=== PATIENT | male | born 1935 | race Caucasian/White ===

== ENCOUNTER 2022-06-04 18:18 | Emergency (ER) | payer MEDICARE, OTHER ==
[~2022-06-04] VITALS: Ht 193 cm; Wt 113.4 kg
[2022-06-04 18:23] VITALS: BP 178/97
--- NOTE | 2022-06-04 19:00 | NUR ---
BIBA FROM [place] C/O LOW BACK PAIN ONSET 2 WKS. STATES FALL 1 WK AGO, + BRUISING TO THE BACK. DENIES HEAD TRAUMA OR INJURY. PT AMBULATORY WITH WALKER. VITALS STABLE. EDEMA NOTED B/L LEGS. DENIES SOB OR CP. AAOX4. ON [employer]. PMH:CHF, PROSTATE CANCER- "METS THROUGHOUT BONES", INGUINAL HERNIA, NEUROPATHY, HTN ALLERGIES: WARFARIN, NSAIDS, PCN
--- NOTE | 2022-06-04 19:08 | NUR ---
URINE COLLECTED. IV ESTABLISHED ON R AC 20G.
[2022-06-04] MEDS ORDERED: MORPHINE SULFATE 4 MG/ML SYR IVP ONE ×2 (19:25→21:50)
[2022-06-04 19:51] LABS: BASOPHILS % (AUTO) 0.6 % (0.0-2.0); EOSINOPHILS # (AUTO) 0.1 K/uL (0-0.4); EOSINOPHILS % (AUTO) 2.5 % (0.0-4.0); HEMATOCRIT 30.2 % (36-52); HEMOGLOBIN 9.7 g/dL (12.0-18.0); LYMPHOCYTES # (AUTO) 0.4 K/uL (2.0-11.5); MEAN CORPUSCULAR HEMOGLOBIN 29 pg (27-31); MEAN CORPUSCULAR HGB CONC 32 g/dL (33-37); MEAN CORPUSCULAR VOLUME 91.1 fL (80-94); MONOCYTES # (AUTO) 0.5 K/uL (0.8-1.0); NEUTROPHILS # (AUTO) 3.6 K/uL (1.8-7.7); NEUTROPHILS % (AUTO) 76.9 % (42.2-75.2); PLATELET COUNT (AUTO) 209 K/uL (140-450); RED BLOOD CELL COUNT(AUTO) 3.32 MIL/uL (4.20-6.10); RED CELL DISTRIBUTION WIDTH 19.3 % (11.6-13.7); WHITE BLOOD COUNT (AUTO) 4.7 K/uL (4.8-10.8)
[2022-06-04 20:14] LABS: ALBUMIN 3.1 g/dL (3.4-5.0); ANION GAP 11.7 (8-16); ASPARTATE AMINOTRANSFERASE 24 U/L (15-37); CARBON DIOXIDE 28.2 mmol/L (21-32); CHLORIDE 106 mmol/L (98-107); CREATININE 0.9 mg/dL (0.6-1.3); GLUCOSE 90 mg/dL (74-106); SODIUM SERUM 143 mmol/L (136-145); TOTAL BILIRUBIN 0.5 mg/dL (0.0-1.0); UREA NITROGEN, BLOOD 16 mg/dL (7-18)
[2022-06-04 20:17] LABS: POTASSIUM 2.9 mmol/L (3.5-5.1)
[2022-06-04] MEDS ORDERED: KCL 20 MEQ/WATER INJ PREMIX 200 ML IV ONE (21:10)
[2022-06-04] MEDS ORDERED: POTASSIUM CHLORIDE 10 MEQ TABER PO ONE (21:10)
[2022-06-04] MEDS ORDERED: PIPERACILLIN/TAZOBACTAM 3.375 GM in DEXTROSE 5% 50 ML IV ONE (22:20)
[2022-06-04] MEDS ORDERED: VANCOMYCIN 1,000 MG in DEXTROSE 5% 250 ML IV ONE (22:20)
--- NOTE | 2022-06-04 22:59 | NUR ---
PT REFUSED CT AND LABS. PT STATES HE WILL WAIT UNTIL HIS TRANSFER TO [place]
[2022-06-04] MEDS ORDERED: VANCOMYCIN 1,000 MG VIAL ONE (23:11)
[2022-06-04] MEDS ORDERED: PIPERACILLIN/TAZOBACTAM 3.375 GM VIAL IV ONE (23:12)
--- NOTE | 2022-06-04 23:26 | NUR ---
PT NOW REFUSES ALL MEDICATIONS AND STATES "I'M WILLING TO TAKE MY CHANCES'
[2022-06-04] MEDS ORDERED: FUROSEMIDE 40 MG/4 ML VIAL IVP ONE (23:55)
[2022-06-05 02:00] VITALS: BP 148/82
--- NOTE | 2022-06-05 02:20 | NUR ---
REPORT CALLED TO [facility]
--- NOTE | 2022-06-05 02:25 | NUR ---
Report called to PERLA Ibarra at [facility]. Pt to be transferedto room 542
--- NOTE | 2022-06-05 02:55 | NUR ---
[facility] TRANSPORT AT BEDSIDE
--- NOTE | 2022-06-05 03:07 | NUR ---
TRANSFERED AT THIS TIME VIA [facility]
[2022-06-05] MEDS ORDERED: LIDOCAINE 5% 1 EA PATCH TP SCH (09:00)
== END 2022-06-05 03:07 | disposition short-term general hospital (02) ==
LOC: MED 18:18
DX: G89.3 Neoplasm related pain (acute) (chronic) (principal); Z20.822 Contact with and (suspected) exposure to COVID-19; M54.50 Low back pain, unspecified; Z51.11 Encounter for antineoplastic chemotherapy; C61 Malignant neoplasm of prostate; C79.51 Secondary malignant neoplasm of bone; I50.9 Heart failure, unspecified; E87.6 Hypokalemia; D64.9 Anemia, unspecified; I48.91 Unspecified atrial fibrillation; I10 Essential (primary) hypertension; Z91.81 History of falling; Z85.46 Personal history of malignant neoplasm of prostate; Z88.0 Allergy status to penicillin; Z88.8 Allergy status to other drugs, medicaments and biological substances; Z79.1 Long term (current) use of non-steroidal anti-inflammatories (NSAID); Z98.890 Other specified postprocedural states
CPT/HCPCS: 36415; 71045; 80053; 83605; 83880; 84484; 85025; 85379; 87426; 93005; 96365; 96375; 96376; 99285; J2270; J2543; J3370; J3480; Q0092